=== PATIENT | male | born 1955 | race Caucasian/White ===

== ENCOUNTER 2021-03-31 17:23 | Inpatient (IN) | payer MEDICARE, OTHER ==
[~2021-03-31] VITALS: Ht 177.8 cm; Wt 98.8 kg
[2021-03-31 17:37] VITALS: BP 162/111
[2021-03-31] MEDS ORDERED: LIPITOR 20 MG T20 M1 PO (17:41)
[2021-03-31] MEDS ORDERED: OMEPRAZOLE 20 M20 M1 PO (17:41)
[2021-03-31] MEDS ORDERED: PROAIR HFA8.5 GM INH (17:41)
[2021-03-31] MEDS ORDERED: HYDRALAZINE 10M10 MG PO (17:41)
[2021-03-31] MEDS ORDERED: PREDNISONE 10 M10 MG PO (17:42)
[2021-03-31] MEDS ORDERED: ZINC50 MG PO (17:42)
[2021-03-31] MEDS ORDERED: VITAMIN D3125 MC1 PO (17:42)
[2021-03-31 18:46] LABS: ABSOLUTE BASOPHILS 0.1 thou/uL (0.0-0.2); ABSOLUTE LYMPHOCYTES 1.1 thou/uL (0.8-5.3); ABSOLUTE MONOCYTES 1.6 thou/uL (0.0-1.2); ABSOLUTE NEUTROPHILS 11.1 thou/uL (1.6-8.1); BASOPHILS 0.9 %; EOSINOPHILS 0.2 %; HEMATOCRIT 42.7 % (42.0-52.0); HEMOGLOBIN 14.4 gm/dL (14.0-18.0); LYMPHOCYTES 7.9 %; MCH 29.4 pg (26.0-34.0); MCHC 33.8 g/dL (28.0-37.0); MCV 87.1 fL (80.0-100.0); MONOCYTES 11.8 %; MPV 7.7 fl. (7.2-11.1); NUCLEATED RBCS 0 /100WBC; PLATELET COUNT* 383 thou/uL (150-400); POLYS 79.2 %; RDW-CV 15.9 % (10.5-14.5)
[2021-03-31 18:56] LABS: CREATININE 0.9 mg/dL (0.6-1.3)
[2021-03-31 18:57] LABS: POTASSIUM 2.8 mmol/L (3.5-5.1)
[2021-03-31 19:00] LABS: ALBUMIN 3.9 g/dL (3.4-5.0); TOTAL BILIRUBIN 0.9 mg/dL (<0.1-1.0); TOTAL PROTEIN 8.5 g/dL (6.4-8.2)
[2021-03-31 22:38] VITALS: BP 131/92
[2021-04-01] VITALS: BP 154/84
[2021-04-01 00:59] LABS: HEMATOCRIT 40.5 % (42.0-52.0); HEMOGLOBIN 13.5 gm/dL (14.0-18.0); MCH 29.6 pg (26.0-34.0); MCHC 33.3 g/dL (28.0-37.0); MCV 88.7 fL (80.0-100.0); MPV 8.1 fl. (7.2-11.1); RBC 4.56 mil/uL (4.50-6.00); WBC 10.8 thou/uL (4.0-11.0)
[2021-04-01 04:30] VITALS: BP 166/77
[2021-04-01 06:05] LABS: CALCIUM 9.3 mg/dL (8.5-10.1); CREATININE 0.9 mg/dL (0.6-1.3); POTASSIUM 3.4 mmol/L (3.5-5.1)
[2021-04-01 08:14] VITALS: BP 175/108
--- NOTE | 2021-04-01 09:51 | EKG ---
[place] [address] ELECTROCARDIOGRAM REPORT Name: KETTY BAKERAMRIT Grossman Room: [address] ADM IN M.R.#: [id number] Admission: 03/31/21 Attend Phys: Lyn Mae MD Discharge: Date of : 55 Date of Service: 03/31/211831 Report #: [id number] THIS REPORT FOR: //name// [facility] ED Test Date: 2021-03-31 Test Time: 18:32:45 Pat Name: NIELS BAKER Department: Room: [facility] Gender: [place] [employer] Director: HUANG : 1955 Requested By: Benigno Timmons Order Number: [id number] MD: Esa Mandel Measurements Intervals [place] Rate: 98 P: 60 NV: 152 QRS: -29 QRSD: 116 T: 45 QT: 395 QTc: 505 Interpretive Statements Sinus rhythm Artifact in lead(s) I,II,III,aVR,aVL,aVF,V1,V3,V4 No previous ECG available for comparison Electronically Signed On 04-01-2021 9:51:48 CDT by Esa Mandel [email or web address] <ELECTRONICALLY SIGNED> By: Esa Mandel MD, FAC 04/01/21 0951 [id number] Esa Mandel MD, FAC /EPI
[2021-04-01 12:00] VITALS: BP 149/83
[2021-04-01 20:00] VITALS: BP 112/54
[2021-04-02 03:20] VITALS: BP 139/75
[2021-04-02 04:48] LABS: HEMATOCRIT 38.2 % (42.0-52.0); HEMOGLOBIN 12.6 gm/dL (14.0-18.0); MCH 29.6 pg (26.0-34.0); MCHC 32.9 g/dL (28.0-37.0); MPV 8.4 fl. (7.2-11.1); RBC 4.25 mil/uL (4.50-6.00); RDW-CV 15.7 % (10.5-14.5); WBC 10.4 thou/uL (4.0-11.0)
[2021-04-02 04:55] LABS: CALCIUM 8.7 mg/dL (8.5-10.1); CREATININE 0.8 mg/dL (0.6-1.3); POTASSIUM 3.6 mmol/L (3.5-5.1)
[2021-04-02 08:08] VITALS: BP 152/94
[2021-04-02 12:00] VITALS: BP 145/78
== END 2021-04-02 12:40 | disposition left against medical advice (07) | DRG 389 ==
LOC: M.ERS 17:23 → M.2W 20:34 → M.TBA-ER 20:34 → M.2W 22:54
PROVIDERS: Internal Medicine; Nurse Practitioner Psychiatric/Mental Health; ADMIT Family Medicine; ATTEND Family Medicine
PROC: 0D9670Z Drainage of Stomach with Drainage Device, Via Natural or Artificial Opening (ICD-10-PCS; principal; 2021-04-01)
DX: K56.690 Other partial intestinal obstruction (principal); E87.0 Hyperosmolality and hypernatremia; E87.6 Hypokalemia; J45.909 Unspecified asthma, uncomplicated; E66.9 Obesity, unspecified; I10 Essential (primary) hypertension; E86.0 Dehydration; D72.829 Elevated white blood cell count, unspecified; Z53.21 Procedure and treatment not carried out due to patient leaving prior to being seen by health care provider; Z20.822 Contact with and (suspected) exposure to COVID-19; Z90.49 Acquired absence of other specified parts of digestive tract; Z85.118 Personal history of other malignant neoplasm of bronchus and lung; Z79.899 Other long term (current) drug therapy; Z91.09 Other allergy status, other than to drugs and biological substances; Z68.31 Body mass index [BMI] 31.0-31.9, adult